=== PATIENT | male | born 1990 | race Caucasian/White ===

== ENCOUNTER 2020-11-07 19:51 | Emergency (ER) | payer BC ==
[~2020-11-07] VITALS: Ht 154.9 cm; Wt 149.7 kg
--- OUTSIDE RECORDS SUMMARY | 2020-11-07 19:52 | XMS ---
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 [place] has no Care Guidelines for this patient. Sandy VISIT COUNT (12 MO.) 1 JOSE Salgado TOTAL 1 NOTE: Visits indicate total known visits. ED/C VISIT TRACKING (12 MO.) 11/07/2020 19:51 JOSE Izaguirre [place] TYPE: Emergency COMPLAINT: - TOOTH PAIN INPATIENT VISIT TRACKING (12 MO.) No inpatient visits to display in this time frame [email or web address]
== END 2020-11-07 21:33 | disposition home or self-care (01) ==
LOC: ED 19:51
DX: K04.7 Periapical abscess without sinus (principal)
CPT/HCPCS: 96372; 99282; J1170

== ENCOUNTER 2020-11-10 07:35 | Emergency (ER) | payer BC ==
[~2020-11-10] VITALS: Ht 180.3 cm; Wt 149.7 kg
--- OUTSIDE RECORDS SUMMARY | 2020-11-10 07:38 | XMS ---
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 [place] - 2 Visits in 30 Days - [facility] CARE PROVIDERS There are no care providers on record at this time. [place] has no Care Guidelines for this patient. [place] [facility] NOTE: Visits indicate total known visits. ED/C VISIT TRACKING (12 MO.) [facility]2020 07[facility] COMPLAINT: - DENTAL PAIN 11/07/2020 19:51 JOSE Izaguirre OR TYPE: Emergency COMPLAINT: - TOOTH PAIN INPATIENT VISIT TRACKING (12 MO.) No inpatient visits to display in this time frame [email or web address]
[2020-11-10] MEDS ORDERED: METRONIDAZOLE500 MG PO (08:27)
[2020-11-10] MEDS ORDERED: LEVOFLOXACIN750 MG PO (08:27)
[2020-11-10] MEDS ORDERED: HYDROCODON-ACE1 EA10 PO (14:06)
== END 2020-11-10 14:34 | disposition home or self-care (01) ==
LOC: ED 07:35
DX: K02.9 Dental caries, unspecified (principal); E87.1 Hypo-osmolality and hyponatremia; Z88.0 Allergy status to penicillin; Z79.899 Other long term (current) drug therapy
CPT/HCPCS: 64400; 80048; 80053; 83735; 85025; 99283-25; J1100; J1885; J2405